=== PATIENT | male | born 1995 | race Caucasian/White ===

== ENCOUNTER → 2020-06-21 | Outpatient (CLI) | payer BC ==
[2020-06-21 12:28] LABS: HEMATOCRIT 45.9 % (42.0-52.0); HEMOGLOBIN 15.2 g/dl (13.5-17.5); MEAN CORPUSCULAR HEMOGLOBIN 29.9 pg (27.0-33.0); MEAN CORPUSCULAR HGB CONC 33.1 g/dl (32.0-36.5); MEAN CORPUSCULAR VOLUME 90.2 fl (80.0-96.0); PLATELET COUNT, AUTOMATED 238 10^3/uL (150-450); RED BLOOD COUNT 5.09 10^6/uL (4.30-6.10); WHITE BLOOD COUNT 5.4 10^3/uL (4.0-10.0)
[2020-06-21 12:56] LABS: ALT/SGPT 19 U/L (12-78); BILIRUBIN,TOTAL 0.6 MG/DL (0.2-1.0); BLOOD UREA NITROGEN 16 MG/DL (7-18); CALCIUM LEVEL 9.1 MG/DL (8.5-10.1); CARBON DIOXIDE LEVEL 32 MEQ/L (21-32); CHLORIDE LEVEL 104 MEQ/L (98-107); CHOLESTEROL LEVEL 109 MG/DL (<200); CHOLESTEROL RISK RATIO 2.319 (<5); CREATININE FOR GFR 1.17 MG/DL (0.70-1.30); GLOMERULAR FILTRATION RATE > 60.0 (>60); GLUCOSE, FASTING 97 MG/DL (70-100); HDL CHOLESTEROL 47 MG/DL (>40); IRON (FE) 90 UG/DL (65-175); LDL CHOLESTEROL 48 MG/DL (<100); NON-HDL-C 62 MG/DL; PERCENT SATURATION 31.6 % (19.7-50.0); POTASSIUM SERUM 3.8 MEQ/L (3.5-5.1); SODIUM LEVEL 139 MEQ/L (136-145); TOTAL IRON BINDING CAPACITY 285 UG/DL (250-450); TOTAL PROTEIN 7.2 GM/DL (6.4-8.2); TRIGLYCERIDES LEVEL 68 MG/DL (<150)
[2020-06-21 13:17] LABS: HEMOGLOBIN A1c 4.9 %
== END ==
LOC: M LAB 11:45
PROVIDERS: ATTEND Family Medicine
DX: D64.9 Anemia, unspecified (principal); R53.83 Other fatigue; E03.9 Hypothyroidism, unspecified

== ENCOUNTER 2020-12-11 09:46 | Emergency (ER) | payer BC ==
[~2020-12-11] VITALS: Ht 182.9 cm; Wt 74.1 kg
[2020-12-11] MEDS ORDERED: ZYRTTAB8 PO (09:58)
[2020-12-11] MEDS ORDERED: KETOROLAC 30 MG/ML 1ML VIAL IV ONE (10:15)
[2020-12-11] MEDS ORDERED: ONDANSETRON 4MG/2ML VIAL IV ONE (10:15)
[2020-12-11] MEDS ORDERED: DERMABOND TOPICAL SKIN ADHESIVE TOP ONE (10:20)
[2020-12-11 12:01] VITALS: BP 110/67
== END 2020-12-11 12:03 | disposition home or self-care (01) ==
LOC: EDBD 09:46 → M ED 09:46
DX: S00.81XA Abrasion of other part of head, initial encounter (principal); S09.8XXA Other specified injuries of head, initial encounter; W22.8XXA Striking against or struck by other objects, initial encounter; Y92.410 Unspecified street and highway as the place of occurrence of the external cause; Y93.89 Activity, other specified; Y99.9 Unspecified external cause status; F17.200 Nicotine dependence, unspecified, uncomplicated
CPT/HCPCS: 12011; 70450; 96374; 96375; 99284; J1885; J2405

== ENCOUNTER → 2022-09-16 | Outpatient (REF) ==
[~2022-09-16] MED LIST: ZYRTTAB8 PO
== END ==
LOC: M PLAIMG 13:37
PROVIDERS: ATTEND Internal Medicine
DX: R06.02 Shortness of breath (principal)

== ENCOUNTER → 2025-02-03 | Outpatient (CLI) | payer BC, OTHER | LOC: M SLEEP 20:00 | PROVIDERS: ATTEND Internal Medicine | DX: R06.83 Snoring (principal) ==

== ENCOUNTER 2025-04-09 11:07 | Emergency (ER) | payer BC, OTHER ==
[~2025-04-09] VITALS: Ht 182.9 cm; Wt 88.0 kg
[2025-04-09 12:41] LABS: SOFIA COVID ANTIGEN NEGATIVE (NEGATIVE)
[2025-04-09] MEDS: NS (Normal Saline) 0.9% 1,000 ML IV ONE ×2 (14:15)
[2025-04-09 14:22] LABS: BASO # 0.1 10^3/uL (0.0-0.2); BASO % 1.0 % (0.0-1.0); EOS # 0.2 10^3/uL (0.0-0.5); EOS % 1.8 % (0.0-3.0); LYMPH # 1.7 10^3/uL (1.5-5.0); LYMPH % 17.6 % (24.0-44.0); MONO # 0.9 10^3/uL (0.0-0.8); MONO % 9.1 % (2.0-8.0); NEUTROPHILS # 6.6 10^3/uL (1.5-8.5); NEUTROPHILS % 70.0 % (36.0-66.0); PLATELET COUNT, AUTOMATED 312 10^3/uL (150-450)
[2025-04-09 14:51] LABS: CALCIUM LEVEL 9.8 MG/DL (8.5-10.1); CARBON DIOXIDE LEVEL 30.0 MMOL/L (20-31); CHLORIDE LEVEL 103.0 MMOL/L (98-107); CREATININE FOR GFR 1.2 MG/DL (0.70-1.30); GLOMERULAR FILTRATION RATE 82.9 (>60); POTASSIUM SERUM 4.3 MMOL/L (3.5-5.1); SODIUM LEVEL 141.0 MMOL/L (136-145)
[2025-04-09] MEDS ORDERED: PRED20TA PO (15:38)
[2025-04-09] MEDS ORDERED: AZIT-12 PO (15:38)
[2025-04-09 18:44] VITALS: BP 127/76; TEMP 97; O2SAT 100
== END 2025-04-09 18:46 | disposition home or self-care (01) ==
LOC: M ED 11:07
DX: J40 Bronchitis, not specified as acute or chronic (principal); K76.89 Other specified diseases of liver